=== PATIENT | female | born 1950 | race American Indian/Alaskan Native ===

== ENCOUNTER 2018-08-11 13:16 | Outpatient (CLI) | payer MEDICARE ==
--- NOTE | 2018-08-11 14:06 | Mammography Report ---
Bilateral mammogram: Compared to 04/19/16. Her CAD study utilized. Findings: Predominance adipose tissue bilaterally. A focal linear asymmetry lower anterior left breast. Focal circumscribed asymmetry upper anterior right breast. Focal architectural distortion mid right breast seen only on MLO view. Benign axillary nodes. No microcalcifications Impression: Focal asymmetry left breast. Focal asymmetries in the right breast. Recommend spot compression and if necessary sonographic examination. BI-RADS CATEGORY: 0 = Needs additional imaging evaluation ACR BI-RADS MAMMOGRAPHIC CODES: 0 = Needs additional imaging evaluation; 1 = Negative; 2 = Benign; 3 = Probably benign; 4 = Suspicious; 5 = Malignant; 6 = Known biopsy-proven malignancy COMMENT: 1. Dense breast tissue, i.e., adenosis, fibrocystic changes, etc., may obscure an underlying neoplasm. 2. Approximately 10% of cancers are not detected with mammography. 3. A negative mammography report should not delay biopsy if a clinically suspicious mass is present. COMMENT: Patient follow-up letters are generated in [email or web address].
== END 2018-08-11 13:17 | disposition home or self-care (01) ==
LOC: SPVWC 13:16
PROVIDERS: ATTEND Family Medicine
DX: Z12.31 Encounter for screening mammogram for malignant neoplasm of breast (principal)
CPT/HCPCS: 77067

== ENCOUNTER 2018-10-06 14:36 | Outpatient (CLI) | payer MEDICARE ==
--- NOTE | 2018-10-06 15:06 | Mammography Report ---
BILATERAL DIGITAL DIAGNOSTIC MAMMOGRAM : 10/06/18 14:36:00 CLINICAL: Recalled for bilateral asymmetries. COMPARISON:09/08/18 screening FINDINGS: Additional mammographic views were performed and are negative. IMPRESSION: No mammographic evidence of malignancy. BI-RADS CATEGORY: 2 - - Benign RECOMMENDATION: Routine mammographic screening in one year. COMMENT: 1. Dense breast tissue, i.e., adenosis, fibrocystic changes, etc., may obscure an underlying neoplasm. 2. Approximately 10% of cancers are not detected with mammography. 3. A negative mammography report should not delay biopsy if a clinically suspicious mass is present. COMMENT: Patient follow-up letters are generated via our [employer] application.
== END 2018-10-06 14:37 | disposition home or self-care (01) ==
LOC: SPVWC 14:36
PROVIDERS: ATTEND Family Medicine
DX: R92.8 Other abnormal and inconclusive findings on diagnostic imaging of breast (principal)
CPT/HCPCS: 77066

== ENCOUNTER 2019-03-16 11:28 | Outpatient (CLI) | payer MEDICARE ==
--- NOTE | 2019-03-17 10:09 | Mammography Report ---
BONE DEXA CLINICAL: Postmenopausal. COMPARISON: 06/13/2016 TECHNIQUE: 2 site bone DEXA performed on an Hologic scanner. FINDINGS: The average BMD of the lumbar spine L1-L4 is 1.011g/cm squared with a T score of -1.3 and a Z score o f +1.0. This compares to 0.965g/cm squared on the last exam and represents a +4.8 % change from the [ previous baseline]. The average BMD of the left hip is 0.939 g/cm squared with a T score of -0.6and a Z score of +0.5. Th is compares to 0.945 g/cm squared on the last exam and represents a -0.6 % change from the [previous baseline]. The left femoral neck BMD is 0.776 g/cm squared with a T score of -1.2 and a Z score of +0.2. IMPRESSION: 1. WHO classification: Osteopenia with increased fracture risk based on both spine and left femoral n ligia measurements. 2. Moderate improvement in spine BMD and minimal change and left hip BMD compared to the previous exa m. RECOMMENDATION: Clinical correlation and routine screening. Definitions: BMD equal bone mineral density T score = BMD related to peak bone mass of young adult ([place] expressed an standard deviation) Z score = age-matched BMD expressed in SD World health organization (WHO) diagnostic criteria Normal T score greater than equal to 1 standard deviation Osteopenia T score between -1 and -2.4 standard deviation Osteoporosis T score -2.5 standard deviation or below. Note: BMD is not the only risk factor for fracture; also consider factors such as the patient's age, risk of falling, previous osteoporotic fracture, family history of osteoporotic fractures, current sm oker and low body weight. Z scores are not calculated if greater than 80 years of age. Signer Name: Sylvain Dillard MD Signed: 03/17/2019 10:05 AM Workstation Name: [id number]
== END 2019-03-16 11:29 | disposition home or self-care (01) ==
LOC: SPVWC 11:28
PROVIDERS: ATTEND Family Medicine
DX: Z78.0 Asymptomatic menopausal state (principal); M85.89 Other specified disorders of bone density and structure, multiple sites
CPT/HCPCS: 77080